=== PATIENT | female | born 1955 | race Caucasian/White ===

== ENCOUNTER 2019-11-28 15:10 | Outpatient (CLI) | payer OTHER, SELFPAY ==
--- NOTE | ~2019-11-28 | MM_ITS ---
EXAMINATION: MM screening [facility] BI w marques HISTORY: Screening mammogram TECHNIQUE: Craniocaudal and mediolateral oblique 3-D tomosynthesis images were obtained and synthetic 2-D images were generated. CAD analysis was submitted and interpreted. COMPARISON: 10/24/2018, 10/20/2017, 10/12/2017, 09/28/2016 BREAST PARENCHYMAL COMPOSITION: There are scattered areas of fibroglandular density. FINDINGS: There is no evidence of suspicious mass, calcification, or architectural distortion to sugg est malignancy in either breast. There has been no suspicious interval change. IMPRESSION: 1. No mammographic evidence of malignancy. 2. Recommend routine screening mammography in one year. BI-RADS Category 1: Negative Reviewed, dictated and finalized at location A.
== END 2019-11-28 15:11 | disposition home or self-care (01) ==
PROVIDERS: PCP Family Medicine; Visit Provider Family Medicine
DX: Z12.31 Encounter for screening mammogram for malignant neoplasm of breast (principal)
CPT/HCPCS: 77063; 77067

== ENCOUNTER 2021-02-12 10:05 | Outpatient (CLI) | payer OTHER, SELFPAY ==
--- NOTE | ~2021-02-12 | MM_ITS ---
EXAMINATION: MM screening [facility] BI w marques HISTORY: Screening TECHNIQUE: Craniocaudal and mediolateral oblique 3-D tomosynthesis images were obtained and synthetic 2-D images were generated. CAD analysis was submitted and interpreted. COMPARISON: Comparison to multiple prior studies sequentially, with oldest reviewed study dated 06/2014. BREAST PARENCHYMAL COMPOSITION: The breasts are heterogeneously dense, which may obscure small masses . FINDINGS: There is no evidence of suspicious mass, calcification, or architectural distortion to sugg est malignancy in either breast. There has been no suspicious interval change. IMPRESSION: 1. No mammographic evidence of malignancy. 2. Recommend routine screening mammography in one year. BI-RADS Category 1: Negative Reviewed, dictated and finalized at location A.
== END 2021-02-12 10:06 | disposition home or self-care (01) ==
PROVIDERS: PCP Family Medicine; Visit Provider Physician Assistant
DX: Z12.31 Encounter for screening mammogram for malignant neoplasm of breast (principal)
CPT/HCPCS: 77063; 77067

== ENCOUNTER 2021-04-24 17:00 | Outpatient (CLI) | payer OTHER, SELFPAY ==
--- NOTE | ~2021-04-24 | CT_ITS ---
EXAMINATION: CT brain wo con, CT facial bones wo con EXAM DATE: 04/24/2021 17:38 (accession [id number]), 04/24/2021 17:39 (accession [id number]) INDICATION: Z91.81 - History of falling. Fell last night with loss of consciousness, head injury, eye and nose bruising. TECHNIQUE: Spiral CT of the head was performed without contrast. Axial, coronal and sagittal images were reviewed. Spiral CT of the facial bones was performed without contrast. Axial images were revie wed. Coronal and sagittal reformatted images were also reviewed. The dose-length product (DLP) for this examination was 605.33 (accession [id number]), 289.43 (accession [id number]) mGy-cm. Th e exposure was tailored according to patient size, and iterative reconstruction (ASIR) was used as ad ditional dose reduction technique. Comparison is made to prior examination from 06/01/[address] FINDINGS: HEAD CT: There is no acute intraparenchymal hemorrhage. No evidence of intraparenchymal brain mass lesion. No evidence of acute infarction. There is no mass effect or midline shift. There is no obst ructive hydrocephalus suspected. There are no extra-axial collections. There are no calvarial acute fractures. FACIAL CT: There are acute bilateral mildly depressed nasal bone fractures. There are several acute nasal septal fractures. The orbits, globes and extraocular muscles are unremarkable. Soft tissue i s unremarkable. The visualized sinuses and mastoid air cells are well aerated. IMPRESSION: 1. Nasal septal and mildly depressed nasal bone fractures. 2. No acute intracranial findings. Reviewed, dictated and finalized at location A. FICIAL BREEDING TECHNICIAN IMPRESSION: 1. Nasal septal and mildly depressed nasal bone fractures. 2. No acute intracranial findings.
--- NOTE | ~2021-04-24 | XR_ITS ---
EXAMINATION: XR tibia fibula RT 2V DATE: 04/24/2021 17:25 INDICATION: Mid anterior right tibia/fibular pain post TECHNIQUE: fall AP and lateral views of the right tibia and fibula were obtained. COMPARISON: None. FINDINGS: Alignment is normal. No fracture. Joint spaces are normal. Soft tissues are unremarkable. No right kn ee or ankle joint effusion. IMPRESSION: 1. Negative right tibia/fibula radiographs. Reviewed, dictated and finalized at location A. EAU ANALYST
--- NOTE | ~2021-04-24 | XR_ITS ---
EXAMINATION: XR forearm LT 2V DATE: 04/24/2021 17:25 INDICATION: Pain and bump at the proximal posterior left forearm post fall TECHNIQUE: AP an lateral views of the left forearm were obtained. COMPARISON: none FINDINGS: Alignment is normal. No fracture. 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 Remaining joint spaces appear relatively preserv ed. Mild soft tissue swelling dorsal to the proximal ulna. No elbow joint effusion. IMPRESSION: 1. No acute osseous abnormality. Reviewed, dictated and finalized at location A. SS DATABASE DEVELOPER
[2021-04-24 17:53] LABS: Basophils Percent Auto 0.3 % (0.2-1.2); Hematocrit 33.8 % (37.0-47.0); Hemoglobin 10.8 g/dL (12.0-15.0); Immature Granulocyte Absolute 0.01 K/mm3 (0.00-0.031); Immature Granulocyte Percent A 0.3 % (0-0.5); Lymphocytes Absolute Auto 1.17 K/mm3 (0.9-3.2); Lymphocytes Percent Auto 31.6 % (18.3-44.2); Mean Corpuscular Hemoglobin 25.6 pg (26-34); Mean Corpuscular Volume 80.1 fl (80-100); Mean Platelet Volume 8.9 fl (7.4-10.4); Monocytes Absolute Auto 0.3 K/mm3 (0.1-0.6); Monocytes Percent Auto 7.6 % (2.6-8.5); Neutrophils Absolute Auto 2.2 K/mm3 (1.3-6.7); Neutrophils Percent Auto 60.2 % (45.5-73.1); Platelet Count Result 202 k/mm3 (150-375); Red Blood Count 4.22 M/mm3 (4.2-5.4); White Blood Count 3.7 K/mm3 (4.5-10.0)
[2021-04-24 18:05] LABS: Influenza Control Positive
== END 2021-04-24 17:01 | disposition home or self-care (01) ==
PROVIDERS: PCP Family Medicine; Visit Provider Physician Assistant
DX: R51.9 Headache, unspecified (principal); M79.632 Pain in left forearm; M79.604 Pain in right leg; R19.5 Other fecal abnormalities; Z91.81 History of falling; R61 Generalized hyperhidrosis; R68.89 Other general symptoms and signs; R19.4 Change in bowel habit
CPT/HCPCS: 70450; 70486; 73090; 73590; 85025; 87804

== ENCOUNTER → 2021-04-28 01:07 | Outpatient (CLI) | payer OTHER, SELFPAY ==
[2021-04-28 13:29] LABS: Influenza Control Positive
[2021-04-29 02:02] LABS: SARS-CoV-2 RNA PCR Negative
== END ==
PROVIDERS: PCP Family Medicine; Visit Provider Physician Assistant
DX: R68.89 Other general symptoms and signs (principal); Z20.822 Contact with and (suspected) exposure to COVID-19
CPT/HCPCS: 87804; C9803; U0003; U0005

== ENCOUNTER 2021-05-13 15:23 | Outpatient (CLI) | payer OTHER, SELFPAY ==
--- NOTE | ~2021-05-13 | US_ITS ---
EXAMINATION: US carotid duplex BI DATE: 05/13/2021 16:05 INDICATION: Syncope. TECHNIQUE: Grayscale, color Doppler, and pulsed Doppler images of the cervical carotid arteries were obtained. The degree of vessel stenosis is placed in one of the following categories: normal, <50%, 5 0-69%, >=70% but less than near-occlusion, near-occlusion, or total occlusion. Note that percent sten osis relative to normal distal artery lumen diameter is indirectly measured from velocity measurement s as described by Enio, et al. Radiology 2003; 229:340-346. COMPARISON: None. FINDINGS: RIGHT: The right common carotid artery (CCA) peak systolic velocity (PSV) is 112 cm/s. The right internal ca rotid artery (ICA) PSV is 79 cm/s. The right ICA end-diastolic velocity (EDV) is 33 cm/s. The right I CA/CCA PSV ratio is 0.7. Grayscale and color Doppler images yield an estimate of <50% diameter reduct ion from plaque in the ICA. There is antegrade flow in the right vertebral artery. LEFT: The left CCA PSV is 90 cm/s. The left ICA PSV is 101 cm/s. The left ICA EDV is 37 cm/s. The left ICA/ CCA PSV ratio is 1.1. Grayscale and color Doppler images yield an estimate of <50% diameter reduction from plaque in the ICA. There is antegrade flow in the left vertebral artery. IMPRESSION: 1. <50% stenosis in the right internal carotid artery. 2. <50% stenosis in the left internal carotid artery. Reviewed, dictated and finalized at location D. EL TRIMMER
== END 2021-05-13 15:24 | disposition home or self-care (01) ==
LOC: ANHIMG 15:32
PROVIDERS: PCP Family Medicine; Visit Provider Physician Assistant
DX: R55 Syncope and collapse (principal); Z91.81 History of falling; I65.23 Occlusion and stenosis of bilateral carotid arteries
CPT/HCPCS: 93880

== ENCOUNTER → 2021-05-28 02:10 | Outpatient (CLI) | payer OTHER, SELFPAY ==
[2021-05-28 20:41] LABS: SARS-CoV-2 RNA PCR Negative
== END ==
PROVIDERS: PCP Family Medicine; Visit Provider Family Medicine
DX: R50.9 Fever, unspecified (principal); J02.9 Acute pharyngitis, unspecified; Z20.822 Contact with and (suspected) exposure to COVID-19
CPT/HCPCS: C9803; U0003; U0005

== ENCOUNTER 2021-09-25 16:37 | Outpatient (CLI) | payer OTHER, SELFPAY ==
--- NOTE | ~2021-09-25 | XR_ITS ---
EXAMINATION: XR heel RT min 2V DATE: 09/25/2021 16:58 INDICATION: Right foot pain. TECHNIQUE: 2 views of right calcaneus were obtained. COMPARISON: None. FINDINGS: Bone alignment is normal. No fracture. Joint spaces are well maintained. There are dystroph ic calcifications in the area of distal Achilles tendon. IMPRESSION: 1. Normal calcaneus. Reviewed, dictated and finalized at location A. IMPRESSION: 1. Normal calcaneus.
== END 2021-09-25 16:38 | disposition home or self-care (01) ==
LOC: ANHIMG 16:40
PROVIDERS: PCP Family Medicine; Visit Provider Family Medicine
DX: M79.671 Pain in right foot (principal)
CPT/HCPCS: 73650

== ENCOUNTER 2021-12-09 16:20 | Emergency (ER) | payer OTHER, SELFPAY ==
--- NOTE | ~2021-12-09 | CT_ITS ---
EXAMINATION: CT abdomen pelvis wo con DATE: 12/09/2021 17:04 INDICATION: Right flank pain TECHNIQUE: Computed tomography (CT) of the abdomen and pelvis was performed without intravenous contr ast. The dose-length product was 271.24 mGy-cm. Automated exposure control and iterative reconstructi on technique were employed. COMPARISON: CT dated 09/04/2014. FINDINGS: There is dependent atelectasis. Heart size normal. No significant pleural or pericardial ef fusion. Status post cholecystectomy. No significant vascular abnormality. Small hiatal hernia. No lym phadenopathy. Colonic diverticulosis without evidence for diverticulitis. Normal appendix. Nonobstruc tive bowel pattern. The liver, spleen, pancreas, adrenal glands and kidneys are unremarkable. No ureteral stones or hydro nephrosis. Status post posterior fusion at L4-5 with prosthetic disc device. Hardware appears to be i ntact. IMPRESSION: 1. No acute abdominal abnormality. Reviewed, dictated and finalized at location A.
[2021-12-09 16:24] VITALS: BP 136/64; PULSE 95; RESP 16; TEMP 36.9; O2SAT 97
[2021-12-09 16:46] LABS: Basophils Absolute Auto 0.1 K/mm3 (0.0-0.1); Basophils Percent Auto 0.6 % (0.2-1.2); Eosinophils Percent Auto 0.2 % (0-4.4); Hematocrit 33.2 % (37.0-47.0); Hemoglobin 10.3 g/dL (12.0-15.0); Immature Granulocyte Absolute 0.03 K/mm3 (0.00-0.031); Immature Granulocyte Percent A 0.3 % (0-0.5); Lymphocytes Absolute Auto 1.77 K/mm3 (0.9-3.2); Lymphocytes Percent Auto 18.3 % (18.3-44.2); Mean Corpuscular Hemoglobin 25.2 pg (26-34); Mean Corpuscular Volume 81.2 fl (80-100); Mean Platelet Volume 8.5 fl (7.4-10.4); Monocytes Absolute Auto 0.8 K/mm3 (0.1-0.6); Monocytes Percent Auto 8.5 % (2.6-8.5); Neutrophils Percent Auto 72.1 % (45.5-73.1); Platelet Count Result 342 k/mm3 (150-375); Red Blood Count 4.09 M/mm3 (4.2-5.4); Red Cell Distribution Width 15.4 % (11.5-14.5); White Blood Count 9.7 K/mm3 (4.5-10.0)
[2021-12-09 16:55] VITALS: BP 138/78; PULSE 97; RESP 16; TEMP 37.4; O2SAT 96
[2021-12-09 16:55] LABS: Alanine Aminotransferase 14 U/L (6-35); Albumin Level 4.1 g/dL (3.5-5.1); Alkaline Phosphatase 114 U/L (38-126); Anion Gap 11 mmol/L (8-16); Aspartate Amino Transferase 22 U/L (14-36); Bilirubin,Total 0.4 mg/dL (0.2-1.3); Blood Urea Nitrogen 10 mg/dL (7-17); Calcium 8.7 mg/dL (8.4-10.2); Carbon Dioxide 24 mmol/L (22-30); Chloride 102 mmol/L (98-107); Estimated CRCL calculation 77 ml/min; Estimated Glomerular Filt Rate > 60; Glucose 170 mg/dL (65-110); Lipase 93 U/L (23-300); Potassium 3.9 mmol/L (3.4-5.0); Sodium 137 mmol/L (137-145)
[2021-12-09 17:08] LABS: Appearance Urine Cloudy (Clear); Bilirubin Urine 1+ (Negative); Blood Urine 1+ (Negative); Color Urine Yellow (Yellow); Glucose Urine UA Trace mg/dL (Negative); Ketones Urine 1+ mg/dL (Negative); Leukocyte Esterase Ur Negative LEU/UL (Negative); Nitrate Urine Negative (Negative); Protein Urine 1+ mg/dL (Negative); Specific Grav Ur >= 1.030 (1.001-1.035); Urobilinogen Urine 0.2 mg/dL (<2.0); pH Urine 5.5 (5.0-9.0)
[2021-12-09 17:10] LABS: Add Urine Microscopic? YES
[2021-12-09 17:11] LABS: Bacteria Urine Trace /hpf; Mucus Urine Few /lpf; Squamous Epithelial Cell Urine Many /hpf (Few)
--- NOTE | 2021-12-09 17:15 | ED.ABDPAIN ---
HPI - Abdominal Pain General Chief Complaint: Abdominal Pain Stated Complaint: R. flank pain Time Seen by Provider: 12/09/21 16:48 History of Present Illness HPI narrative: 66-year-old female with a history of kidney stones presents the emergency room with complaints of right flank pain that radiates into her abdomen. States pain is worse with movement and is similar to past episodes of kidney stones. Associated with nausea. Pain began yesterday morning. Denies decreased urine flow. Denies fever. Denies hematuria. Related Data Allergies Allergy/AdvReac Type Severity Reaction Status Date / Time No Known Allergies Allergy Verified 12/09/21 16:26 Review of Systems Review of Systems: CONSTITUTIONAL: Denies fever, chills, or sweats. EYES: Denies visual changes, redness, or discharge. ENT: Denies rhinorrhea, congestion, sore throat, or otalgia. CARDIOVASCULAR: Denies chest pain, palpitations, or edema. RESPIRATORY: Denies cough or dyspnea. GASTROINTESTINAL: Reports right flank pain GENITOURINARY: Denies dysuria or hematuria. SKIN: Denies rash or itching. MUSCULOSKELETAL: Denies back pain, joint pain, or myalgia. NEUROLOGIC: Denies headache, numbness, dizziness, or weakness. PSYCHIATRIC: Denies anxiety or depression. PMFSH Past Medical History Medical History Obesity Rash Tick bite Surgical History Surgical History History of bladder suspension procedure History of cholecystectomy Family History Family History Father Hypertension Family history of elevated blood lipids Family history of coronary artery disease Sibling Carcinoma of colon Other Family history of malignant neoplasm Social History Social History Smoking status: Never smoker Second hand tobacco smoke exposure: No Alcohol intake: never Substance use: never Substance use type: does not use Gender identity (if verbalized by the patient): Female Sexual Orientation (if Verbalized by the Patient): Straight or Heterosexual Exam Narrative: GENERAL: Well-appearing, well-nourished, no physical limitations, and in no acute distress. HEAD: Normocephalic, atraumatic. EYES: Conjunctivae normal, PERRLA and EOMI. CHEST: Clear to auscultation. No respiratory distress. No wheezes rales or rhonchi. No tenderness. HEART: Regular rate and rhythm. No murmur heard. Normal peripheral pulses. ABDOMEN: Soft, nontender, nondistended, normal active bowel sounds. BACK: Right CVA tenderness; FROM, pain illicited with rotation and lateral bend EXTREMITIES: Normal range of motion. No edema. No clubbing or cyanosis SKIN: Warm, dry, no rash. No noted wounds NEURO: No focal deficits. Alert and oriented x3. MAEW. CN's II-XI intact bilaterally, normal gait PSYCH: Cooperative. Normal mood and affect. Course Vital Signs Vital signs: Vital Signs Temperature 36.9 C 12/09/21 16:24 Pulse Rate 95 12/09/21 16:24 Respiratory Rate 16 12/09/21 16:24 Blood Pressure 136/64 12/09/21 16:24 Pulse Oximetry 97 12/09/21 16:24 Oxygen Delivery Room Air 12/09/21 16:24 Temperature 37.4 C 12/09/21 16:55 Pulse Rate 97 12/09/21 16:55 Respiratory Rate 16 12/09/21 16:55 Blood Pressure 138/78 12/09/21 16:55 Pulse Oximetry 96 12/09/21 16:55 Oxygen Delivery Room Air 12/09/21 16:24 MDM - Abdominal Pain MDM Narrative Medical decision making narrative: 66-year-old female with a history of kidney stones presented the emergency room with complaints of a right flank pain. Patient stated that the pain was worse with movement and did radiate into her abdomen. Denied any urinary symptoms. CT scan showed no acute intra-abdominal abnormality. Urine was clean for blood or signs of UTI. He was unremarkable. Patient likely
[2021-12-09] MEDS: SODIUM CHLORIDE 0.9% IV 1,000 ML 999 ML IV CONT (17:22)
[2021-12-09] MEDS: KETOROLAC 30 MG/ML VIAL (*BKC) IV PUSH (17:30)
[2021-12-09 19:06] VITALS: BP 142/86; PULSE 86; RESP 18; O2SAT 97
== END 2021-12-09 19:07 | disposition home or self-care (01) ==
PROVIDERS: Emergency Medicine; Emergency Provider Nurse Practitioner Family; PCP Family Medicine
DX: S39.012A Strain of muscle, fascia and tendon of lower back, initial encounter (principal); X58.XXXA Exposure to other specified factors, initial encounter
CPT/HCPCS: 36415; 74176; 80053; 81001; 83690; 85025; 96361; 96374; 99284; J1885; J7030

== ENCOUNTER → 2022-01-13 14:21 | Outpatient (CLI) | payer SELFPAY ==
--- NOTE | ~2022-01-13 | XR_ITS ---
XR chest 2V DATE: 01/13/2022 14:42 INDICATION: Chest pain TECHNIQUE: 2 views COMPARISON: 07/14/2007 PA and lateral chest 01/29/2009 CT pulmonary scan FINDINGS: Heart size is normal. Mild aortic unfolding. No hilar or mediastinal enlargement. No pulmonary infiltrate or consolidation, pleural effusion or pulmonary vascular congestion or pneumo thorax is detected. Status post cholecystectomy. Osteopenia. Mild levoscoliosis and degenerative spurring of the thoracic spine. IMPRESSION: No active cardiopulmonary disease Reviewed, dictated and finalized at location B.
== END ==
PROVIDERS: PCP Family Medicine; Visit Provider Family Medicine
DX: R07.9 Chest pain, unspecified (principal)
CPT/HCPCS: 71046

== ENCOUNTER → 2022-04-09 10:16 | Outpatient (CLI) | payer OTHER, SELFPAY ==
--- NOTE | ~2022-04-09 | MM_ITS ---
EXAMINATION: MM screening [facility] BI w marques HISTORY: Screening mammogram TECHNIQUE: Craniocaudal and mediolateral oblique 3-D tomosynthesis images were obtained and synthetic 2-D images were generated. CAD analysis was submitted and interpreted. COMPARISON: 02/12/2021, 11/28/2019, 10/24/2018 by lateral screening mammogram examinations BREAST PARENCHYMAL COMPOSITION: There are scattered areas of fibroglandular density. FINDINGS: Scattered bilateral benign calcifications are again noted. There is no evidence of suspicio us mass, calcification, or architectural distortion to suggest malignancy in either breast. There has been no suspicious interval change. IMPRESSION: 1. No mammographic evidence of malignancy. 2. Recommend routine screening mammography in one year. BI-RADS Category 1: Negative Reviewed, dictated and finalized at location A. LOPE FOLDING MACHINE OPERATOR
== END ==
PROVIDERS: PCP Family Medicine; Visit Provider Physician Assistant
DX: Z12.31 Encounter for screening mammogram for malignant neoplasm of breast (principal)
CPT/HCPCS: 77063; 77067

== ENCOUNTER 2023-06-01 13:59 | Outpatient (CLI) | payer OTHER, SELFPAY ==
--- NOTE | ~2023-06-01 | MM_ITS ---
EXAMINATION: MM screening [facility] BI w marques HISTORY: Screening TECHNIQUE: Craniocaudal and mediolateral oblique 3-D tomosynthesis images were obtained and synthetic 2-D images were generated. CAD analysis was submitted and interpreted. COMPARISON: Comparison to multiple prior studies sequentially, with oldest reviewed study dated 10/12. BREAST PARENCHYMAL COMPOSITION: There are scattered areas of fibroglandular density. FINDINGS: There is no evidence of suspicious mass, calcification, or architectural distortion to sugg est malignancy in either breast. There has been no suspicious interval change. IMPRESSION: 1. No mammographic evidence of malignancy. 2. Recommend routine screening mammography in one year. BI-RADS Category 1: Negative Reviewed, dictated and finalized at location A. OSING MACHINE OPERATOR/TENDER
== END 2023-06-01 14:00 | disposition home or self-care (01) ==
LOC: ANHIMG 14:01
PROVIDERS: PCP Family Medicine; Visit Provider Physician Assistant
DX: Z12.31 Encounter for screening mammogram for malignant neoplasm of breast (principal)
CPT/HCPCS: 77063; 77067

== ENCOUNTER 2023-09-15 10:57 | Outpatient (CLI) | payer OTHER, SELFPAY ==
--- NOTE | ~2023-09-15 | CT_ITS ---
CT of the Abdomen and Pelvis: Indication: Abdominal pain Technique: 2.5 mm axial scans were obtained through the abdomen and pelvis following intravenous adm inistration of 100 cc of Omnipaque 350. Dose reduction technique was used on this scan by utilizing a utomated exposure control and iterative reconstruction technique. The dose-length product (DLP) was 5 91.82 mGy-cm. COMPARISON: 12/09/2021 Findings: Scans through the lung bases are unremarkable. There is probable diffuse hepatic steatosis. Peripherally enhancing lesion in the posterior right lob e measures 3.9 cm in diameter, likely hemangioma. Cholecystectomy clips are present. The spleen, panc reas, adrenals and kidneys are within normal limits. No evidence of aortic aneurysm. No lymphadenop athy. There is wall thickening and pericolic inflammatory change at the proximal sigmoid colon, compatible with acute articulates. Several local small bubbles of free are present, compatible microperforation in this region. No abscess evident. Images through the pelvis were performed. Urinary bladder unremarkable. Status post hysterectomy. No pelvic mass seen. No ascites. Impression: Acute diverticulitis of the proximal sigmoid colon with microperforation, as detailed above. No absce ss. 3.9 cm probable hepatic hemangioma. Reviewed, dictated and finalized at location M. Impression: Acute diverticulitis of the proximal sigmoid colon with microperforation, as de tailed above. No abscess. 3.9 cm probable hepatic hemangioma.
[2023-09-15 11:27] LABS: Estimated Glomerular Filt Rate > 60
== END 2023-09-15 10:58 | disposition home or self-care (01) ==
LOC: ANHIMG 10:58
PROVIDERS: PCP Family Medicine; Visit Provider Physician Assistant Medical
DX: R10.32 Left lower quadrant pain (principal); R11.0 Nausea; R50.9 Fever, unspecified; K57.32 Diverticulitis of large intestine without perforation or abscess without bleeding
CPT/HCPCS: 74177; Q9967

== ENCOUNTER 2024-02-21 10:13 | Outpatient (CLI) | payer OTHER, SELFPAY ==
--- NOTE | ~2024-02-21 | DEXA_ITS ---
Bone Density Report Name: LEIGH RIZO Age: 68 Sex: Female Ethnicity: White Date of : 1955 Indication: postmenopausal; screening for osteoporosis; height loss; hysterectomy; Referring Provider: CATHERINE WALTERS Study: Bone densitometry was performed. Exam Date: February 21, 2024 Accession number: [id number] Bone Density: Region BMD T-score Z-score Classification AP Spine(L1, L2, L3) 1.131 1.0 2.8 Normal Femoral Neck (Left) 0.751 -0.9 0.7 Normal Total Hip (Left) 0.961 0.2 1.5 Normal Femoral Neck (Right) 0.793 -0.5 1.1 Normal Total Hip (Right) 0.933 -0.1 1.2 Normal Total Hip Mean 0.947 0.1 1.4 Normal World Health Organization criteria for BMD impression classify patients as: Normal (T-score at or above -1.0), Osteopenia (T-score between -1.0 and -2.5), or Osteoporosis (T-score at or below -2.5). 10-year Fracture Risk: FRAX not reported because: All T-scores for Spine Total, Hip Total, Femoral Neck at or above -1.0 Previous Exams: Region Exam Age BMD T-score BMD Change BMD Change Date g/cm2 vs Baseline vs Previous AP Spine (L1-L3) 02/21/2024 68 1.131 1.0 -0.011 (-0.9%) -0.011 (-0.9%) 05/05/2015 59 1.142 1.1 Total Hip(Left) 02/21/2024 68 0.961 0.2 -0.083 (-8.0%) -0.083 (-8.0%) 05/05/2015 59 1.044 0.8 Total Hip(Right) 02/21/2024 68 0.933 -0.1 -0.125 (-11.8% -0.125 (-11.8% 05/05/2015 59 1.058 0.9 *Denotes significance at 95% confidence level, LSC for AP Spine = 0.022 g/cm2, LSC for Total Hip = 0.027 g/cm2 Clinical Information Provided by Patient: Has used the following medications: Vitamin D Has the following medical conditions: Hysterectomy Patient maximum height was 62 Menopause Age: 52 No regular weight bearing exercise Drinks caffeinated beverages Onset of menses at age 15 Number of children 2 Impression: The patient has normal bone mass. The BMD for the Total Hip(Left) decreased, changing by -8.0% since the last DXA exam. The BMD for the Total Hip(Right) decreased, changing by -11.8% since the last DXA exam. Discussion: BONE DENSITY IS ABOVE THE MINIMUM DESIRABLE LEVEL AT ALL SKELETAL SITES TESTED. This patient?s bone mineral density is above the minimum desirable level (T-score -1.0 or better) at all sites measured. The patient should follow a healthful lifestyle (good nutrition with adequate calcium and vitamin D, and appropriate weight-bearing exercise). Follow-Up: Consider repeating
== END 2024-02-21 10:14 | disposition home or self-care (01) ==
PROVIDERS: PCP Family Medicine; Visit Provider Family Medicine
DX: Z78.0 Asymptomatic menopausal state (principal)
CPT/HCPCS: 77080

== ENCOUNTER 2024-03-01 00:44 | Day surgery (SDC) | payer OTHER, SELFPAY ==
[2024-02-10 14:45] VITALS: BMI 29.4
[2024-03-01 11:20] VITALS: BP 135/83; PULSE 114; RESP 16; TEMP 36.4; O2SAT 96; BMI 29.0
[2024-03-01] MEDS: LACTATED RINGERS 1,000 ML 150 ML IV CONT (11:43)
--- NOTE | 2024-03-01 11:44 | SUR.PREOP ---
PIV attempt in right hand, hematoma developed, pressure and heat compress applied to hand, Patient educated on care of hematoma at home. Patient verbalizes understanding. RN will follow up with patient over phone call tomorrow 03/02.
[2024-03-01 12:01] LABS: Glucose Point of Care 190 mg/dl (65-105)
--- NOTE | 2024-03-01 12:01 | WPDANESEPPF ---
Anes - Initial Pre Proc Eval Procedure: Operation Date: 03/01/24 12:30 Proposed Procedures p Colonoscopy - Jorge Finch MD Date/Time: 03/01/24 12:01 Surgeon: Jorge Finch MD Pre Op Diagnosis: diverticulitis Patient Data Age: 68 Gender: F Height: 1.57 m Weight: 72 kg Last Vital Signs Temp 36.4 C 03/01/24 11:20 Pulse 114 H 03/01/24 11:20 Resp 16 03/01/24 11:20 BP 135/83 03/01/24 11:20 Pulse Ox 96 03/01/24 11:20 O2 Del Method Room Air 03/01/24 11:20 Allergies Allergy/AdvReac Type Severity Reaction Status Date / Time No Known Allergies Allergy Verified 03/01/24 11:18 Home Medications Medication Instructions Recorded Confirmed Type blood sugar diagnostic (Blood #100 ea 08/13/22 03/01/24 Rx Glucose Test strips) blood-glucose meter #1 ea 08/13/22 03/01/24 Rx lancets #200 ea 08/13/22 03/01/24 Rx metformin 500 mg tablet,extended See Rx Instructions .Route 06/22/23 03/01/24 Rx release 24 hr .COMPLEX #360 tabs blood sugar diagnostic (FreeStyle #100 ea 07/15/23 03/01/24 Rx Test strips) blood-glucose meter (FreeStyle #1 ea 07/15/23 03/01/24 Rx System Kit) lisinopril 5 mg tablet 5 mg PO DAILY #90 tabs 12/20/23 03/01/24 Rx omeprazole 20 mg capsule,delayed 20 mg PO DAILY #90 caps 12/26/23 03/01/24 Rx release Laboratory Tests 03/01/24 11:27 POC Capillary Glucose Pending Patient hx anesthesia problems: none Family hx anesthesia problems: none Results Review: All pre-operative results and documents have been reviewed as part of the pre-operative evaluation. [facility] Past Medical History Medical History (Updated 03/01/24 @ 12:02 by Arvind Wilson MD) HTN (hypertension) Hyperlipidemia Obesity ALONDRA (obstructive sleep apnea) Rash Type 2 diabetes mellitus without complications Surgical History Surgical History History of bladder suspension procedure History of cholecystectomy Family History Family History Father Hypertension Family history of elevated blood lipids Family history of coronary artery disease Sibling Carcinoma of colon Other Family history of malignant neoplasm Social History Social History Social History: Smoking status: Never smoker Second hand tobacco smoke exposure: No Alcohol intake: never Substance use: never Substance use type: does not use Do You Feel Safe in your Home?: Yes Lack of Transportation: No Lack of Food: Never True Current Housing: I Have Housing Concerned About Future Housing: No Difficulty Paying Gas/Electric Bills: No Difficulty Paying for Meds: No Currently Unemployed: YES Education: Don't Know Difficulty w/ Childcare or Family Care: No Living arrangements: with family Occupation/Education: occupation Gender identity (if verbalized by the patient): Female Sexual Orientation (if Verbalized by the Patient): Straight or Heterosexual Spiritual care concerns: No Anes - Eval Final PreProcedure Day of Procedure 03/01/24 12:01 Patient weight: obese Heart: regular rate and rhythm Lungs: clear to auscultation Airway: Mallampati scale class II Neurological: alert and oriented Last oral intake: >/= 8 hours ASA classification: III Emergent: no Anesthetic plan: proceed Anesthesia type and monitoring: general GIVS and standard monitoring Results Review: All pre-operative results and documents have been reviewed as part of the pre-operative evaluation. Informed Consent: The patient's anesthetic plan and its attendant risks and benefits were discussed with the patient/family/POA. Questions were solicited and answers provided to the satisfaction of the patient/family/POA.
--- NOTE | 2024-03-01 12:38 | PM.HPGS ---
History of Present Illness History of Present Illness Consent: Risks, benefits, and alternatives have been discussed and questions answered. Patient agrees to proceed with procedure. Chief complaint: diverticulitis Narrative: Safia Aldrich is a 68 year old female with diverticulitis 09/2023, now asymptomatic Review of Systems Review of Systems: All systems reviewed & are unremarkable except as noted in HPI and below PMFSH Past Medical History Medical History (Updated 03/01/24 @ 12:39 by Jorge Finch MD) History of diverticulitis of colon HTN (hypertension) Hyperlipidemia Obesity ALONDRA (obstructive sleep apnea) Rash Type 2 diabetes mellitus without complications Surgical History Surgical History History of bladder suspension procedure History of cholecystectomy Family History Family History Father Hypertension Family history of elevated blood lipids Family history of coronary artery disease Sibling Carcinoma of colon Other Family history of malignant neoplasm Social History Social History Social History: Smoking status: Never smoker Second hand tobacco smoke exposure: No Alcohol intake: never Substance use: never Substance use type: does not use Do You Feel Safe in your Home?: Yes Lack of Transportation: No Lack of Food: Never True Current Housing: I Have Housing Concerned About Future Housing: No Difficulty Paying Gas/Electric Bills: No Difficulty Paying for Meds: No Currently Unemployed: YES Education: Don't Know Difficulty w/ Childcare or Family Care: No Living arrangements: with family Occupation/Education: occupation Gender identity (if verbalized by the patient): Female Sexual Orientation (if Verbalized by the Patient): Straight or Heterosexual Spiritual care concerns: No Meds Home Medications and Allergies Home Medications Medication Instructions Recorded Confirmed Type blood sugar diagnostic (Blood #100 ea 08/13/22 03/01/24 Rx Glucose Test strips) blood-glucose meter #1 ea 08/13/22 03/01/24 Rx lancets #200 ea 08/13/22 03/01/24 Rx metformin 500 mg tablet,extended See Rx Instructions .Route 06/22/23 03/01/24 Rx release 24 hr .COMPLEX #360 tabs blood sugar diagnostic (FreeStyle #100 ea 07/15/23 03/01/24 Rx Test strips) blood-glucose meter (FreeStyle #1 ea 07/15/23 03/01/24 Rx System Kit) lisinopril 5 mg tablet 5 mg PO DAILY #90 tabs 12/20/23 03/01/24 Rx omeprazole 20 mg capsule,delayed 20 mg PO DAILY #90 caps 12/26/23 03/01/24 Rx release Allergies Allergy/AdvReac Type Severity Reaction Status Date / Time No Known Allergies Allergy Verified 03/01/24 11:18 Vital Signs Vital Signs - 24 hr 03/01/24 11:20 Temperature 97.6 F Pulse Rate 114 H Respiratory Rate 16 Blood Pressure 135/83 Pulse Oximetry 96 Oxygen Delivery Room Air Exam Const: General: comfortable and no acute distress HENMT: Face/Nose/Sinus: Normal nares present Eyes: General: appearance normal, both eyes and all related structures Neck: Neck: no JVD Resp: Auscultation: clear to auscultation bilaterally Cardio: Rate: regular rate Rhythm: regular rhythm GI: Inspection: non-distended GI Palp: Yes Soft to palpation Skin: General skin exam: normal color Neuro: General: gait normal Speech: normal speech Extrem: General: normal to inspection Psych: Mental Status: mental status grossly normal Assessment and Plan Assessment and plan (1) History of diverticulitis of colon: Code(s): Z87.19 - Personal history of other diseases of the digestive system Status: Acute Assessment and Plan: colonoscopy
[2024-03-01 13:02] VITALS: BP 92/58; PULSE 91; RESP 16; O2SAT 97
[2024-03-01 13:12] VITALS: BP 106/62; PULSE 87; RESP 20; O2SAT 96
[2024-03-01 13:22] VITALS: BP 109/73; PULSE 75; RESP 20; O2SAT 96
[2024-03-01 13:23] LABS: Glucose Point of Care 149 mg/dl (65-105)
== END 2024-03-01 13:42 | disposition home or self-care (01) ==
PROVIDERS: PCP Family Medicine; Visit Provider Internal Medicine Gastroenterology
PROC: 0DJD8ZZ Inspection of Lower Intestinal Tract, Via Natural or Artificial Opening Endoscopic (ICD-10-PCS; CPT 45378; principal; 2024-03-01 12:30)
DX: Z09 Encounter for follow-up examination after completed treatment for conditions other than malignant neoplasm (principal); K57.30 Diverticulosis of large intestine without perforation or abscess without bleeding; K62.1 Rectal polyp; K64.8 Other hemorrhoids; Z87.19 Personal history of other diseases of the digestive system; Z79.84 Long term (current) use of oral hypoglycemic drugs; I10 Essential (primary) hypertension; E78.5 Hyperlipidemia, unspecified; E11.9 Type 2 diabetes mellitus without complications; G47.33 Obstructive sleep apnea (adult) (pediatric)
CPT/HCPCS: 45385; 82948; 88305; J2003; J2704; J7120

== ENCOUNTER 2024-03-04 18:04 | Emergency (ER) | payer OTHER, SELFPAY ==
[2024-03-04 18:10] VITALS: BP 119/65; PULSE 70; RESP 18; TEMP 37.1; O2SAT 97
--- NOTE | 2024-03-04 19:36 | ED.GENADULT ---
HPI - General Adult General Chief complaint: Skin/Abscess/Foreign Body Stated complaint: bite on right side of neck Source: patient Mode of arrival: ambulatory Limitations: no limitations History of Present Illness HPI narrative: Patient presents for evaluation of an area of redness to the right lateral aspect of her neck. She first noticed symptoms yesterday. She thinks her symptoms may be 2/2 insect bite. She has associated pruritis. She denies any drainage. She is concerned that the area may be infected. She denies fever, chills, nausea, vomiting or drainage from the area. She has not tried any therapies to assist with her symptoms. She is diabetic but home blood sugars controlled on metformin. She is also concerned about bruising to the right hand and wrist. She had a colonoscopy two days ago and had an IV placed at that time. She applied ice and compression and swelling has decreased. Denies considerable pain. She is simply concerned about the bruising. Related Data Allergies Allergy/AdvReac Type Severity Reaction Status Date / Time No Known Allergies Allergy Verified 03/01/24 11:18 Review of Systems Review of Systems: CONSTITUTIONAL: Denies fever, chills, or sweats. EYES: Denies visual changes, redness, or discharge. ENT: Denies rhinorrhea, congestion, sore throat, or otalgia. CARDIOVASCULAR: Denies chest pain, palpitations, or edema. RESPIRATORY: Denies cough or dyspnea. GASTROINTESTINAL: Denies abdominal pain, nausea, vomiting, or diarrhea. GENITOURINARY: Denies dysuria or hematuria. SKIN: Reports bruising to the right hand and right. Reports redness and pruritus to right lateral neck MUSCULOSKELETAL: Denies back pain, joint pain, or myalgia. NEUROLOGIC: Denies headache, numbness, dizziness, or weakness. PSYCHIATRIC: Denies anxiety or depression. [facility] Past Medical History Medical History History of diverticulitis of colon HTN (hypertension) Hyperlipidemia Obesity ALONDRA (obstructive sleep apnea) Rash Type 2 diabetes mellitus without complications Surgical History Surgical History History of bladder suspension procedure History of cholecystectomy Family History Family History Father Hypertension Family history of elevated blood lipids Family history of coronary artery disease Sibling Carcinoma of colon Other Family history of malignant neoplasm Social History Social History Social History: Smoking status: Never smoker Second hand tobacco smoke exposure: No Alcohol intake: never Substance use: never Substance use type: does not use Do You Feel Safe in your Home?: Yes Lack of Transportation: No Lack of Food: Never True Current Housing: I Have Housing Concerned About Future Housing: No Difficulty Paying Gas/Electric Bills: No Difficulty Paying for Meds: No Currently Unemployed: YES Education: Don't Know Difficulty w/ Childcare or Family Care: No Living arrangements: with family Occupation/Education: occupation Gender identity (if verbalized by the patient): Female Sexual Orientation (if Verbalized by the Patient): Straight or Heterosexual Spiritual care concerns: No Exam Narrative: GENERAL: Well-appearing, well-nourished, and in no acute distress. HEAD: Normocephalic, atraumatic. EYES: PERRLA and EOMI. ENT: Nares clear, no rhinorrhea or epistaxis. Mucous membranes moist. Oropharynx without tonsillar hypertrophy exudate or other lesions. Bilateral TMs pearly cason nonbulging NECK: Supple. No adenopathy or masses. No carotid bruits or JVD CHEST: Clear to auscultation. No respiratory distress. No wheezes rales or rhonchi HEART: Regular rate and rhythm. No murmur heard. Normal peripheral pul
== END 2024-03-04 19:39 | disposition home or self-care (01) ==
PROVIDERS: Emergency Provider Nurse Practitioner; PCP Family Medicine
DX: S10.96XA Insect bite of unspecified part of neck, initial encounter (principal); W57.XXXA Bitten or stung by nonvenomous insect and other nonvenomous arthropods, initial encounter; S60.221A Contusion of right hand, initial encounter; S60.211A Contusion of right wrist, initial encounter; X58.XXXA Exposure to other specified factors, initial encounter; I10 Essential (primary) hypertension; E78.5 Hyperlipidemia, unspecified; E11.9 Type 2 diabetes mellitus without complications; E66.9 Obesity, unspecified; Z68.30 Body mass index [BMI] 30.0-30.9, adult
CPT/HCPCS: 99213; G0463

== ENCOUNTER 2024-07-13 09:44 | Outpatient (CLI) | payer OTHER, SELFPAY | END 2024-07-13 09:45 | disposition home or self-care (01) | LOC: ANHIMG 09:48 | PROVIDERS: PCP Family Medicine; Visit Provider Family Medicine | DX: Z12.31 Encounter for screening mammogram for malignant neoplasm of breast (principal) | CPT/HCPCS: 77063; 77067 ==

== ENCOUNTER 2025-03-07 12:09 | Outpatient (CLI) | payer OTHER, SELFPAY ==
--- OUTSIDE RECORDS SUMMARY | 2025-03-07 13:06 | XMS_ITS | Encounter Summary ---
Author Organization [facility] Address [address] [place] [address] Care Team Providers Care Profiling Machine Set Up Operator Name Role Phone Unavailable Primary Care Provider Unavailabl e Encounter Details Date Type Department Care Team (Late st Contact Info) Description 02/06/2025 Lab Requisition [facility] - DermPath Lab [address] [place] [id number] Elver Rodriguez MD [address] [place] [address] Neoplasm of uncertain behavior of skin Social History Tobacco Use Types Packs/Day Years Used Date Smoking Tobacco: Never Assessed Comments Unknown Sex and Gender Information Value Date Recorded Sex Assigned at Not on file Legal Sex Female 7:09 AM CDT Gender Identity Not on file Sexual Orientation Not on file documented as of this encounter Plan of Treatment Not on file documented as of this encounter Procedures Procedure Name Priority Date/Time Associated Diagnosis Comments DERMATOPATHOLOGY Routine 02/06/2025 10:5 0 AM CDT Neoplasm of uncertain behavior of skin documented in this encounter Results * DERMATOPATHOLOGY (02/06/2025 10:50 AM CDT) Case Report Dermatopathology Report Case: [id number] Authorizing Provider: Elver Rodriguez MD Collected: 02/06/2025 10:50 AM Ordering Location: [facility] - Received: 02/07/2025 12:57 PM DermPath Lab Pathologist: Edith Mcpherson MD Specimen: Skin, right upper cutaneous lip 4:25 PM CDT DERMATOPATHOLOGY LABORATORY Final Diagnosis Specimen A. SKIN, right upper cutaneous lip: BASAL CELL CARCINOMA, NODULAR TYPE (C44.01) 4:25 PM CDT DERMATOPATHOLOGY LABORATORY at 1625 CDT Clinical History BCC vs Other 4:25 PM CDT DERMATOPATHOLOGY LABORATORY Gross Description Specimen A: Received is one formalin filled container labeled with the patient's name and designated right upper cutaneous lip. The specimen consists of a shave biopsy measuring 6x5x2 mm. Jar 0. 4:25 PM CDT DERMATOPATHOLOGY LABORATORY Microscopic Description Specimen A. SKIN, right upper cutaneous lip: Within the dermis there are aggregates of basaloid cells with a high nuclear to cytoplasmic ratio and peripheral palisading. 4:25 PM CDT DERMATOPATHOLOGY LABORATORY Disclaimer An external and internal positive and negative controls are appropriate for the histochemical, immunohistochemical and immunofluorescence stain(s) in this case (if any), except where stated explicitly. The performance characteristics of the stain(s) cited in this report were developed and its performance characteristic determined by the Dermatopathology Laboratory at [facility], directed by Dr. Carlos Mcpherson. These tests need not be, and therefore are not, approved by the [place] Food and Drug Administration. The tests are used for clinical purposes. Billing Codes Specimen Charges Stain Charges 41880 1 4:25 PM CDT DERMATOPATHOLOGY LABORATORY Embedded Images 4:25 PM CDT DERMATOPATHOLOGY LABORATORY Pathology/Cytolo gy TISSUE SPECIMEN FROM SKIN / Unknown 02/06/2025 10:50 AM CDT 02/07/2025 12:57 PM CDT us Elver Rodriguez MD LAB - PATHOLOGY/CYTOLOGY ORDERAB LES Final Result DERMATOPATHOLOGY LABORATORY [facility] Department of Dermatology [address], [address] [phone] documented in this encounter Visit Diagnoses Diagnosis Neoplasm of uncertain behavior of skin documented in this encounter
--- OUTSIDE RECORDS SUMMARY | 2025-03-07 13:06 | XMS_ITS | Encounter Summary ---
Author Organization [facility] Address [address] [place] [address] Care Team Providers Care Equity Director Name Role Phone Ronnell Rios MD Primary Care Provider Reason for Visit * Reason Onset Date Comments Scheduling Appointments 06/19/2020 reminder for dexa; no answer Encounter Details Date Type Department Care Team (Late st Contact Info) Description 06/19/2020 Telephone [facility] [address] [place] [id number] Cherise Lange RT Scheduling Appointments (reminder for dexa; no answer) Social History Tobacco Use Types Packs/Day Years Used Date Smoking Tobacco: Never Smokeless Tobacco: Never Alcohol Use Standard Drinks/Week Comments No 0 (1 standard drink = 0.6 oz pur e alcohol) Comments No Sex and Gender Information Value Date Recorded Sex Assigned at Not on file 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
--- OUTSIDE RECORDS SUMMARY | 2025-03-07 13:06 | XMS_ITS | Clinical Summary ---
Author Organization [facility] [address] Address [address] [place] [address] Care Team Providers Care Report Specialist Name Role Phone Ronnell Rios MD Primary Care Provider Allergies No known active allergies Medications lisinopril (PRINIVIL,ZESTR IL) 5 mg tablet take 1 tablet by oral route every day 0 0 5 Active Additional Information Patient taking differently:5 mgoral Daily, Reported on 08/11/2021 multivitamin capsule Take 1 capsule by mouth daily Active Lactobac no.41/Bifidobac t no.7 (PROBIOTIC-10 ORAL) Take by mouth daily .5 cup daily Active acetaminophen 500 mg capsuleIndicati ons:Pain Take 2 capsules (1,000 mg total) by mouth every 8 (eight) hours 120 tablet 1 Active Additional Information Patient taking differently:1,000 mg oral Every 8 hours scheduled,PRN for pain, Indications: Pain, Reported on 08/11/2021 omeprazole (PriLOSEC) 20 mg capsuleIndicati ons:Treatment of Non-Bleeding Gastric Disorder Take 20 mg by mouth daily. Indications: Treatment of Non-Bleeding Gastric Disorder Active metFORMIN XR (GLUCOPHAGE XR) 500 mg 24 hr tablet TAKE 2 TABLETS BY MOUTH ONCE DAILY WITH BIGGEST MEAL 2 Active ascorbic acid (vitamin C) 1,000 mg tablet Take 1,000 mg by mouth daily Active zinc 50 mg tablet Take 50 mg by mouth daily Active cholecalciferol (VITAMIN D-3) 2000 unit capsule Take 2,000 Units by mouth daily Active Active Problems Problem Noted Date Diagnosed Date Syncope and collapse 08/11/2021 Patent foramen ovale 08/11/2021 Essential hypertension 08/11/2021 Type 2 diabetes mellitus wit hout complication, without long-term current use of insulin 08/11/2021 s/p L4-5 XLIF/lami/PSF on 11/10/[address] Kristal bates 11/10/2020 Grade 1 degenerative spondylolisthesis at L4-5 0 07/18/2020 Spinal stenosis, lumbar stephanie on, with neurogenic claudication 07/18/2020 Osteoarthritis of spine with radiculopathy, lumb ar region 01/30/2019 Rotator cuff tendinitis, right 03/29/2018 Surgical History Surgery Date Site/Laterality Comments BLADDER SUSPENSION Bladder suspension X 2 CHOLECYSTECTOMY HYSTERECTOMY vaginal COLPORRHAPHY posterior pelvic organ prolapse LUMBAR SPINE SURGERY 10/14/2020 - 11/12/2020 Medical History Medical History Date Comments Arthritis Arthritis Hypertension Hypertension Osteoporosis Kidney stone Type 2 diabetes mellitus Lumbar stenosis Facet arthropathy, lumbar Spondylolisthesis Sleep apnea GERD (gastroesophageal reflux disease) Bladder prolapse, female, acquired Family History Medical History Relation Name Comments No Known Problems Brother 1 No Known Problems Brother 2 No Known Problems Brother 3 Heart disease Father Heart disease; Hypertension Father Hypertension; Stroke Father Stroke; Cancer Mother Cancer, unknown ; Relation Name Status Comments Brother 1 Alive Brother 2 Alive Brother 3 Alive Father (Age 62) Mother (Age 54) Social History Tobacco Use Types Packs/Day Years Used Date Smoking Tobacco: Never Smokeless Tobacco: Never Alcohol Use Standard Drinks/Week Comments No 0 (1 standard drink = 0.6 oz pur e alcohol) Social Connection and Isolation Panel Answer Date Recorded In a typical week, how many times do you talk on the phone with family, friends, or neighbors? More than three times a week 11/12/2020 How often do you get togethe r with friends or relatives? More than three times a week 11/12/2020 How often do you attend chur or christian services? More than 4 times per year 11/12/2020 Do you belong to any clubs o r organizations such as jehovah's witness groups, unions, fraternal or athletic groups, or school groups? No 11/12/2020 How often do you attend meet ings of the clubs or organizations you belong to? Never 11/12/2020 Are you , , di vorced, , never , or living with a partner? 11/12/2020 AUDIT-C Answer Date Recorded Q1: How often do you have a drink containing alc ohol? Never 08/11/2021 Average Number of Drinks Not on file 022 Frequency of Binge Drinking Not on file 07/15 Overall Financial Resource Strain (CARDIA) Answe r Date Recorded How hard is it for you to pa y for the very basics like food, housing, medical care, and heating? Not hard at all 11/12/2020 Hunger Vital Sign Answer Date Recorded Within the past 12 months, y ou worried that your food would run out before you got the money to buy more. Never true 11/13/19 21 Within the past 12 months, t he food you bought just didn't last and you didn't have money to get more. Never true 11/12/2020 PRAPARE - Transportation Answer Date Re corded In the past 12 months, has l ack of transportation kept you from medical appointments or from getting medications? No 10/16 In the past 12 months, has l ack of transportation kept you from meetings, work, or from getting things needed for daily living? No 11/12/2020 Housing Stability Vital Sign Answer Abdias e Recorded In the last 12 months, was t here a time when you were not able to pay the mortgage or rent on time? No 11/12/2020 Number of Places Lived in the Last Year Not on f ile 11/12/2020 In the last 12 months, was t here a time when you did not have a steady place to sleep or slept in a usp (including now)? 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 Gender Identity Not on file Sexual Orientation Not on file Obstetrics History Last Filed Vital Signs Vital Sign Reading Time Taken Comments Blood Pressure 100/74 08/11/2021 3:59 PM CDT Pulse 88 08/11/2021 3:59 PM CDT Temperature 36.9 C (98.4 F) 04/30/2021 6:39 PM CHRISTMAS TREE [employer]OR Respiratory Rate 16 04/30/2021 6:39 PM CHRISTMAS TREE [employer]OR Oxygen Saturation 96% 08/11/2021 3:59 PM CDT Inhaled Oxygen Concentration - - Weight 77.6 kg (171 lb) 08/11/2021 3:59 PM CDT Height 157.5 cm (5' 2) 08/11/2021 3:59 PM CDT Body Mass Index 31.28 08/11/2021 3:59 PM CDT Plan of Treatment Not on file Medical Devices Implanted Type Area Power Washer Device Identifier Shelf Expiration Date Model / Serial / Lot Medtronic Sofamor Danek [id number] Infuse Kit Xs Graft Bone Rhbmp-2 Bovine Collagen Lumbar Taper - [id number] Implanted:Qty: 1 on 11/10/2020 by Anson Chao MD at [facility] N/A: Spine Lumbar Medtronic Inc 10/13/2021 [id number] / / [id number] Nuvasive Creative Spine Tech [id number] Modulus [id number] 10d Xl Cage Spinal Sterile Latex Free - [id number] Implanted:Qty: 1 on 11/10/2020 by Anson Chao MD at [facility] N/A: Spine Lumbar Nuvasive Inc 06/25/2024 [id number] / / [id number] Spinal Graft Tech [id number] Progenix Putty Substitute 1ml Bone Graft Demineralized Bone - [id number] - [id number] Implanted:Qty: 1 on 11/10/2020 by Anson Chao MD at [facility] N/A: Spine Lumbar Spinal Graft Tech 06/09/2022 [id number] / [id number] / K2m Llc [id number] Nunez Od6.5 Mm L35 Mm Polyaxial Spine Screw Bone - [id number] Implanted:Qty: 4 on 11/10/2020 by Anson Chao MD at [facility] Spine Lumbar [place] Spine [id number] / / [employer]2m Llc [id number] Nunez Spine Screw Set Grimaldo - [id number] Implanted:Qty: 4 on 11/10/2020 by Anson Chao MD at [facility] Spine Lumbar [place]ah Spine [id number] / / K2m Llc [id number] Od5.5 Mm L40 Mm Contour Dale Spinal Grimaldo - [id number] Implanted:Qty: 2 on 11/10/2020 by Anson Chao MD at [facility] Spine Lumbar [place] Spine [id number] / / Insurance HE[employer] OPEN ACCESS HEALTHLINK OPEN ACCESS HEALTH[employer] OPEN ACCESS Advance Directives For more information, please contact: [phone] * Full Code (Latest Code Status on File) Date Activated Date Inactivated Comments 11/10/2020 4:06 PM 11/14/2020 6:07 PM Care Teams Report Specialist Relationship Specialty Start Date End Date Ronnell Rios MD [address] [place] [address] PCP - General 12/05/14
--- OUTSIDE RECORDS SUMMARY | 2025-03-07 13:06 | XMS_ITS | Clinical Summary ---
Author Organization [facility] Address [address] [place] [address] Care Team Providers Care Lot Boss Name Role Phone Unavailable Primary Care Provider Unavailabl e Source Comments [facility],non-owned Affiliates and Associated Physician Practices is amultiple site organization consisting of ambulatory clinics and hospital sitesin [place], [place], [place] and [place]. This disclosure is being madepursuant to the Care Everywhere program and may not contain all information available regarding this patient. Last updated 18.[facility] Encounters Date Type Department Care Team Description 02/06/2025 Lab Requisition [facility] - DermPath Lab [address] [place] [id number] Elver Rodriguez MD Neoplasm of uncertain behavior of skin from Last 3 Months Social History Tobacco Use Types Packs/Day Years Used Date Smoking Tobacco: Never Assessed Comments Unknown Sex and Gender Information Value Date Recorded Sex Assigned at Not on file Legal Sex Female 7:09 AM CDT Gender Identity Not on file Sexual Orientation Not on file Plan of Treatment Health Maintenance Due Date Last Done Comments BONE DENSITY TESTING 1957 COLOGUARD (AGES 45-75) - COL ON CA SCREENING 1957 COLON MONITORING 1957 COLONOSCOPY - COLON CA SCREENING 1957 CT COLONOGRAPHY - COLON CA SCREENING 1957 Colorectal Cancer Screening 1957 FIT - COLON CA SCREENING 1957 FLEX SIG - COLON CA SCREENING 1957 LIPID TESTING 1957 MAMMOGRAM 1957 MEDICARE AWV 12 MONTHS 1957 HEPATITIS C SCREENING 09/08/1975 DTAP/TDAP/TD VACCINES (1 - Tdap) 1976 PNEUMOCOCCAL VACCINE 50+ (1 of 1 - PCV) 09/13/2007 ZOSTER VACCINE (1 of 2) 09/13/2007 DEPRESSION SCREENING 05/16/2024 COVID-19 VACCINE (2023-2 5 season) 2025 INFLUENZA VACCINE (#1) 2025 Respiratory Syncytial Virus (RSV) Vaccine Pt: or over 60 yrs (1 - 1-dose 75+ series) 2032 HEPATITIS B VACCINE Aged Out No longe r eligible based on patient's age to complete this topic HIB VACCINE Aged Out No longer eligi ble based on patient's age to complete this topic HPV VACCINE Aged Out No longer eligi ble based on patient's age to complete this topic MENINGOCOCCAL (Group B) VACC INE SHARED DECISION-MAKING Aged Out No longer eligibl e based on patient's age to complete this topic MENINGOCOCCAL GROUPS A/C/Y/W VACCINE Aged Out No longer eligible b ased on patient's age to complete this topic Procedures Procedure Name Priority Date/Time Associated Diagnosis Comments DERMATOPATHOLOGY Routine 02/06/2025 10:5 0 AM CDT Neoplasm of uncertain behavior of skin from Last 3 Months Results * DERMATOPATHOLOGY (02/06/2025 10:50 AM CDT) Case Report Dermatopathology Report Case: [id number] Authorizing Provider: Elver Rodriguez MD Collected: 02/06/2025 10:50 AM Ordering Location: [facility] - Received: 02/07/2025 12:57 PM DermPath Lab [...] nuclear to cytoplasmic ratio and peripheral palisading. 5 4:25 PM CDT DERMATOPATHOLOGY LABORATORY Disclaimer An external and internal positive and negative controls are appropriate for the histochemical, immunohistochemical and immunofluorescence stain(s) in this case (if any), except where stated explicitly. The performance characteristics of the stain(s) cited in this report were developed and its performance characteristic determined by the Dermatopathology Laboratory at [facility], directed by Dr. Carlos Mcpherson. These tests need not be, and therefore are not, approved by the [place] Food and Drug Administration. The tests are used for clinical purposes. Billing Codes Specimen Charges Stain Charges 74496 1 5 4:25 PM CDT DERMATOPATHOLOGY LABORATORY Embedded Images 4:25 PM CDT DERMATOPATHOLOGY LABORATORY Pathology/Cytolo gy TISSUE SPECIMEN FROM SKIN / Unknown 02/06/2025 10:50 AM CDT 02/07/2025 12:57 PM CDT Elver Rodriguez MD LAB - PATHOLOGY/CYTOLOGY ORDERAB LES Final Result DERMATOPATHOLOGY LABORATORY [facility] - Department of Dermatology [address], [address] [phone] from Last 3 Months Insurance [employer] ADV PPO SELF PAY NO INSURANCE Member Subscriber Plan / Payer (Ef fective for All Dates) Name:[employer] Member ID:Not on file Relation to Subscriber:Not on file Name:SAFIA RIZO Subscriber ID:Not on file (Home) Address: [address] [place] [address] Payer ID:Not on file Group ID:Not on file Type:Self Pay Address: [place], [place]
[2025-03-07 13:50] LABS: Alanine Aminotransferase 15 U/L (6-35); Aspartate Amino Transferase 41 U/L (14-36)
== END 2025-03-07 12:10 | disposition home or self-care (01) ==
PROVIDERS: PCP Family Medicine; Visit Provider Podiatrist Foot & Ankle Surgery
DX: B35.1 Tinea unguium (principal)
CPT/HCPCS: 36415; 84450; 84460

== ENCOUNTER 2025-04-01 14:25 | Outpatient (CLI) | payer OTHER, SELFPAY ==
--- NOTE | ~2025-04-01 | US_ITS ---
EXAMINATION: US venous doppler LE RT DATE: 04/01/2025 15:25 INDICATION: Right lower limb pain TECHNIQUE: Grayscale ultrasound images without and with compression and Doppler ultrasound images of the right lower extremity veins were obtained. COMPARISON: None. FINDINGS: The visualized portions of right common femoral vein, profunda (deep) femoral vein, femoral vein, popliteal vein, peroneal trunk, posterior tibial veins, peroneal veins and greater saphenous vein outflow are patent. IMPRESSION: 1. No deep venous thrombosis in the right lower limb. Reviewed, dictated and finalized at location A. SCHOOL LIAISON OFFICER
--- OUTSIDE RECORDS SUMMARY | 2025-04-02 00:01 | XMS_ITS | Clinical Summary ---
Author Organization [facility] [address] Address [address] [place] [address] Care Team Providers Care Kit Planner Name Role Phone Ronnell Rios MD Primary [...] How often do you attend chur or latter-day services? More than 4 times per year 11/12/2020 Do you belong to any clubs o r organizations such as spiritism groups, unions, fraternal or athletic groups, or [...] place to sleep or slept in a intermediate (including now)? No 11/12/2020 Comments No Sex and Gender Information Value Date Recorded Sex Assigned at Not on file Legal Sex Female 6:12 PM CLOCK SMITH Gender Identity Not on file Sexual Orientation Not on file Last Filed Vital Signs Vital Sign Reading Time Taken Comments Blood Pressure 100/74 08/11/2021 3:59 PM CDT Pulse 88 08/11/2021 3:59 PM CDT Temperature 36.9 C (98.4 F) 04/30/2021 6:39 PM CLOCK SMITH Respiratory Rate 16 04/30/2021 6:39 PM CLOCK SMITH Oxygen Saturation 96% 08/11/2021 3:59 PM CDT Inhaled Oxygen Concentration - - Weight 77.6 kg (171 lb) 08/11/2021 3:59 PM CDT Height 157.5 cm (5' 2) 08/11/2021 3:59 PM CDT Body Mass Index 31.28 08/11/2021 3:59 PM CDT Plan of Treatment Not on file Medical Devices Implanted Type Area Conductor Yard Device Identifier Shelf Expiration Date Model / Serial / Lot Medtronic Sofamor Danek [id number] Infuse Kit Xs Graft Bone [id number]-2 Bovine Collagen Lumbar Taper - [id number] Implanted:Qty: 1 on 11/10/2020 by Anson Chao MD at [facility] N/A: Spine Lumbar Medtronic Inc 10/13/2021 [id number] / / [id number] Nuvasive Creative Spine Tech [id number] Modulus [id number] 10d Xl Cage Spinal Sterile Latex Free - [id number] Implanted:Qty: 1 on 11/10/2020 by Anson Chao MD at [facility] N/A: Spine Lumbar Nuvasive Inc 06/25/2024 [id number] / / [id number] Spinal Graft Tech [id number] Progenix Putty Substitute 1ml Bone Graft Demineralized Bone - [id number] - [id number] Implanted:Qty: 1 on 11/10/2020 by Anson Chao MD at [facility] N/A: Spine Lumbar Spinal Graft Tech 06/09/2022 [id number] / [id number] / K2m Llc [id number] [place] Od6.5 Mm L35 Mm Polyaxial Spine Screw Bone - [id number] Implanted:Qty: 4 on 11/10/2020 by Anson Chao MD at [facility] Spine Lumbar [place] Spine [id number] / / K2m Llc [id number] [place] Spine Screw Set Grimaldo - [id number] Implanted:Qty: 4 on 11/10/2020 by Anson Chao MD at [facility] Spine Lumbar [place] Spine [id number] / / K2[employer] Llc [id number] Od5.5 Mm L40 Mm Contour [place] Spinal Grimaldo - [id number] Implanted:Qty: 2 on 11/10/2020 by Anson Chao MD at [facility] Spine Lumbar [place] Spine [id number] / / Insurance HE[employer]LINK OPEN ACCESS HEALTHLINK OPEN ACCESS HEALTHLINK OPEN ACCESS Advance Directives For more information, please contact: [phone] * Full Code (Latest Code Status on File) Date Activated Date Inactivated Comments 11/10/2020 4:06 PM 11/14/2020 6:07 PM Care Teams Kit Planner Relationship Specialty Start Date End Date Ronnell Rios MD [address] [place] [address] PCP - General 12/05/14
--- OUTSIDE RECORDS SUMMARY | 2025-04-02 00:02 | XMS_ITS | Encounter Summary ---
Author Organization [facility] Address [address] [place] [address] Care Team Providers Care Server Engineer Name Role Phone Ronnell Rios MD Primary Care Provider Reason for Visit * Reason Onset Date Comments Scheduling Appointments 06/19/2020 reminder for dexa; no answer Encounter Details Date Type Department Care Team (Late st Contact Info) Description 06/19/2020 Telephone [facility] [address] [place] [phone] Cherise Lange RT Scheduling Appointments (reminder for dexa; no answer) Social History Tobacco Use Types Packs/Day Years Used Date Smoking Tobacco: Never Smokeless Tobacco: Never Alcohol Use Standard Drinks/Week Comments No 0 (1 standard drink = 0.6 oz pur e alcohol) Comments No Sex and Gender Information Value Date Recorded Sex Assigned at Not on file Legal Sex Female 6:12 PM STEAM SETTER Gender Identity Not on file Sexual Orientation Not on file documented as of this encounter Plan of Treatment Not on file documented as of this encounter Visit Diagnoses Not on filedocumented in this encounter Care Teams Server Engineer Relationship Specialty Start Date End Date Ronnell Rios MD [address] [facility] [address] [place] [address] PCP - General 12/05/14 documented as of this encounter
== END 2025-04-01 14:26 | disposition home or self-care (01) ==
PROVIDERS: PCP Family Medicine; Visit Provider Physician Assistant Medical
DX: M79.604 Pain in right leg (principal); R10.31 Right lower quadrant pain
CPT/HCPCS: 93971

== ENCOUNTER 2025-04-19 14:06 | Outpatient (CLI) | payer OTHER, SELFPAY ==
--- NOTE | ~2025-04-19 | XR_ITS ---
EXAMINATION: XR hip BI 2V w AP pelvis, 04/19/2025 14:28 BOARDER MACHINE HISTORY: BILATERAL HIP PAIN WORSE IN LT HIP COMPARISON: No comparisons available. Findings: No acute fracture or malalignment. Moderate degenerative changes Soft tissues unremarkable. Impression: No acute fracture or malalignment. Reviewed, dictated and finalized at location P. DER MACHINE Impression: No acute fracture or malalignment.
== END 2025-04-19 14:07 | disposition home or self-care (01) ==
PROVIDERS: PCP Family Medicine; Visit Provider Physician Assistant Medical
DX: M25.552 Pain in left hip (principal); M25.551 Pain in right hip
CPT/HCPCS: 73521